=== PATIENT | male | born 1980 | race Caucasian/White ===

== ENCOUNTER → 2019-03-05 | Outpatient (CLI) | payer OTHER | END | disposition home or self-care (01) | LOC: LAB SHORT 17:15 → LAB 17:15 | DX: S81.801A Unspecified open wound, right lower leg, initial encounter (principal); L08.89 Other specified local infections of the skin and subcutaneous tissue | CPT/HCPCS: 87070; 87075; 87205 ==

== ENCOUNTER 2022-05-31 06:08 | Day surgery (SDC) | payer OTHER ==
[~2022-05-31] VITALS: Ht 167.6 cm; Wt 115.1 kg
[~2022-05-31 06:08] MED LIST: ATOR40TA PO; Cyclobenzaprine5 MG PO; GABA300 PO; LORA10ER PO; MELO7.5; MELO7.5 PO; METF500 PO; NOVOLOG100 UNIT/3 SC; OMEP20ER PO; Prozac20 MG PO; TOPI50 PO; TOUJEO MAX300 UNIT/2 SC; TRULICITY4.5 MG/0.5 SC
--- NOTE | 2022-05-31 10:49 | NUR ---
POST ANESTHESIA REPEAT CBG NOT NECESSARY PER DR BAILEY
--- NOTE | 2022-05-31 12:15 | NUR ---
Discharge instructions reviewed with patient. Patient verbalizes understanding. Copy given to patient to take home. Patient States Post-Procedure ride home has been arranged. Discharged via wheelchair to private car for ride home.
--- NOTE | 2022-05-31 12:23 | NUR ---
LATE ENTRY Ambulatory in Day Surgery. ABDOMEN CLIPPED Surgical site prepped with 2% Chlorhexidine cloth wipe.
== END 2022-05-31 23:47 | disposition home or self-care (01) ==
LOC: ORSCMMR 06:08
PROVIDERS: Surgery
PROC: 0YU54JZ Supplement Right Inguinal Region with Synthetic Substitute, Percutaneous Endoscopic Approach (ICD-10-PCS; principal; 2022-05-31 07:30)
PROC: 8E0W4CZ Robotic Assisted Procedure of Trunk Region, Percutaneous Endoscopic Approach (ICD-10-PCS; principal; 2022-05-31 07:30)
DX: K40.91 Unilateral inguinal hernia, without obstruction or gangrene, recurrent (principal); E11.9 Type 2 diabetes mellitus without complications; F41.8 Other specified anxiety disorders; I10 Essential (primary) hypertension; Z79.84 Long term (current) use of oral hypoglycemic drugs; Z79.899 Other long term (current) drug therapy; Z79.4 Long term (current) use of insulin
CPT/HCPCS: 49651; S2900; 82947; C1781; J0690; J1100; J1885; J2250; J2370; J2405; J2704; J2795; J3010; J7120

== ENCOUNTER → 2024-10-07 | Outpatient (CLI) | payer OTHER ==
[2024-10-07 13:30] LABS: Source, Urine Clean Catch
[2024-10-07 14:51] LABS: Appearance, Urine Clear (Clear); Bilirubin, Urine Neg (Neg); Blood, Urine Neg (Neg); Color, Urine Yellow (P-Yellow); Glucose Qualitative, Urine 4+ (Neg); Ketones, Urine Neg (Neg); Leukocyte Esterase, Urine Neg (Neg); Nitrite, Urine Neg (Neg); Protein, Urine Neg (Neg); Urobilinogen, Urine 2+ (Normal); pH, Urine 6.5 (5.0-8.0)
== END | disposition home or self-care (01) ==
LOC: LAB SHORT 13:28 → LAB 13:28
PROVIDERS: Student in an Organized Health Care Education/Training Program
DX: R35.89 Other polyuria (principal)
CPT/HCPCS: 81003